=== PATIENT | male | born 1940 | race Caucasian/White ===

== ENCOUNTER 2018-09-16 10:41 | Inpatient (IN) | payer OTHER ==
[~2018-09-16] VITALS: Ht 180.3 cm; Wt 84.0 kg
[2018-09-16 12:01] LABS: BASOPHILS # (AUTO) 0.1 X10'3 (0-0.2); BASOPHILS % (AUTO) 0.6 % (0-1); EOSINOPHILS % (AUTO) 0.4 % (0-6); HEMATOCRIT 44.6 % (42.0-52.0); HEMOGLOBIN 14.8 g/dl (14.0-17.9); LYMPHOCYTES # (AUTO) 0.6 X10'3 (1.1-4.8); LYMPHOCYTES % (AUTO) 4.7 % (21-51); MEAN CORPUSCULAR HEMOGLOBIN 32.1 PG (27.0-31.0); MEAN CORPUSCULAR HGB CONC 33.3 % (33.0-36.5); MEAN CORPUSCULAR VOLUME 96.6 FL (78-98); MEAN PLATELET VOLUME 9.4 FL (7.4-10.4); MONOCYTES # (AUTO) 0.5 X10'3 (0-0.9); MONOCYTES % (AUTO) 3.7 % (2-12); NEUTROPHILS # (AUTO) 11.2 X10'3 (1.8-7.7); NEUTROPHILS % (AUTO) 90.6 % (42-75); PLATELET COUNT 268 X10'3 (140-440); RED BLOOD COUNT 4.62 X10'6 (4.70-6.10); RED CELL DISTRIBUTION WIDTH 13.1 % (11.5-14.5); WHITE BLOOD COUNT 12.4 X10'3 (4.5-11.0)
[2018-09-16 12:24] LABS: ALANINE AMINOTRANSFERASE 22 U/L (12-78); ALBUMIN 3.6 G/DL (3.4-5.0); ALBUMIN/GLOBULIN RATIO 0.9 (1.1-1.5); ALKALINE PHOSPHATASE 130 IU/L (46-116); ANION GAP 16 (8-16); ASPARTATE AMINO TRANSFERASE 18 U/L (10-37); BLOOD UREA NITROGEN 32 MG/DL (7-18); BUN/CREATININE RATIO 14.7 (5.4-32.0); CALCIUM 9.4 MG/DL (8.5-10.1); CHLORIDE 96 MMOL/L (99-107); CREATININE 2.17 MG/DL (0.60-1.10); ETHANOL < 0.010 GM/DL (0.0-0.010); POTASSIUM 4.2 MMOL/L (3.5-5.1); SODIUM 136 MMOL/L (135-145); TOTAL CARBON DIOXIDE 24.3 MMOL/L (24-32); TOTAL PROTEIN 7.4 G/DL (6.4-8.2); eGFR 30 ML/MIN
[2018-09-16 12:27] LABS: GLUCOSE 586 MG/DL (70-104)
[2018-09-16] MEDS ORDERED: normal saline 1000ML IV soln IVB ONE (12:30)
[2018-09-16 13:05] LABS: CLARITY,URINE CLEAR (Clear); COLOR,URINE YELLOW (Yellow); GLUCOSE, URINE >=1000 mg/dl (Neg); KETONES,URINE 15 mg/dl (Neg); LEUKOCYTE ESTERASE ,URINE NEGATIVE (Neg); NITRITES, URINE NEGATIVE (Neg); OCCULT BLOOD,URINE NEGATIVE (Neg); PH,URINE 5.5 (4.8-8.0); PROTEIN,URINE 100 mg/dl (Neg); UROBILINOGEN,URINE 0.2 E.U/dL (0.2-1.0)
[2018-09-16 13:12] LABS: UA COLLECTION TYPE URINAL
[2018-09-16 13:13] LABS: BACTERIA,URINE NONE SEEN /HPF (Neg); RBC,URINE NONE SEEN /HPF (0-2); WBC,URINE 0-4 /HPF (0-4)
[2018-09-16 13:14] LABS: CELLULAR CAST 0-4 /LPF (NEGATIVE); SQUAMOUS EPITHELIAL CELL,UR FEW /LPF (FEW)
[2018-09-16 13:15] LABS: URINE AMPHETAMINE SCREEN NEGATIVE (Neg); URINE BARBITUATE SCREEN NEGATIVE (Neg); URINE BENZODIAZEPINES SCREEN NEGATIVE (Neg); URINE CANNABINOID SCREEN POSITIVE (Neg); URINE COCAINE SCREEN NEGATIVE (Neg); URINE METHADONE SCREEN NEGATIVE (Neg); URINE OPIATE SCREEN POSITIVE (Neg); URINE PHENCYCLIDINE SCREEN NEGATIVE (Neg)
[2018-09-16] MEDS ORDERED: insulin regular, human 10 units/0.1 ml syringe SQ ONE (13:40)
[2018-09-16 13:53] LABS: TROPONIN I < 0.04 NG/ML (0.0-0.05)
--- NOTE | 2018-09-16 14:17 | NUR ---
GLUCOSE 483
[2018-09-16] MEDS ORDERED: magnesium Cl slow-release 64mg tablet PO PRN (14:20)
[2018-09-16] MEDS ORDERED: MESSAGE TO PHARMACY PO ONE (14:20)
[2018-09-16] MEDS ORDERED: potassium Cl 40MEQ/NS 500ml 500 ML IV PRN ×2 (14:20)
[2018-09-16] MEDS ORDERED: magnesium 4gm in 100ml NS 100 ML IV PRN (14:20)
[2018-09-16] MEDS ORDERED: potassium Cl 20 mEq SR tablet PO PRN (14:20)
[2018-09-16] MEDS ORDERED: metoclopramide 5 mg/ml inj IV PRN (14:20)
[2018-09-16] MEDS ORDERED: glucagon, human recombinant 1mg kit SUBCUT PRN (14:20)
[2018-09-16] MEDS ORDERED: dextrose 50%-water 50ml dispensing syringe IV PRN ×2 (14:20)
[2018-09-16] MEDS ORDERED: ondansetron/PF 4mg/2ml inj IV PRN (14:20)
[2018-09-16] MEDS ORDERED: dextrose ORAL solution 15 GM/59 ML bottle PO PRN ×2 (14:20)
[2018-09-16] MEDS ORDERED: acetaminophen 325mg tablet PO PRN (14:20)
[2018-09-16] MEDS: normal saline 1000ml 1,000 ML IV SCH (14:33)
[2018-09-16 15:32] LABS: HEMOGLOBIN A1C 10.1 % (4.5-6.2)
[2018-09-16] MEDS ORDERED: IBUP-1984 PO (16:15)
[2018-09-16] MEDS ORDERED: OMEP40CA37 PO (16:19)
[2018-09-16] MEDS ORDERED: CYAN-19 PO (16:20)
[2018-09-16] MEDS ORDERED: ASPI81TA52 PO (16:20)
[2018-09-16] MEDS ORDERED: MECL-111 PO (16:21)
[2018-09-16] MEDS ORDERED: DOCU100C41 PO (16:23)
[2018-09-16] MEDS ORDERED: DULO-31 PO (16:23)
[2018-09-16] MEDS ORDERED: METH500T6 PO (16:25)
[2018-09-16] MEDS ORDERED: TERA2CAP4 PO (16:26)
[2018-09-16] MEDS ORDERED: GABA-534 PO (16:26)
[2018-09-16] MEDS ORDERED: INSU100V37 SQ (16:28)
--- NOTE | 2018-09-16 19:38 | NUR ---
GLUCOSE 254
--- NOTE | 2018-09-16 21:01 | NUR ---
elias called to get update on pt, let her know glucose 254
[2018-09-16] MEDS: insulin glargine (Lantus) pen - multi-dose SQ SCH (22:30)
[2018-09-17] VITALS (7 sets, daily range): BP systolic 118–154; BP diastolic 66–96
--- NOTE | 2018-09-17 00:05 | NUR ---
PATIENT ADMITTED TO ROOM 3014A FROM ER FOR CONFUSION, [facility] AND UNCONTROLLED DIABETES. PLACED COMFORTABLE IN BED. VITAL SIGNS TAKEN AND RECORDED.
[2018-09-17] MEDS: normal saline 1000ml 1,000 ML IV SCH ×3 (00:30→20:20)
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
[2018-09-17 06:06] LABS: ANION GAP 12 (8-16); BLOOD UREA NITROGEN 27 MG/DL (7-18); BUN/CREATININE RATIO 17.5 (5.4-32.0); CALCIUM 8.1 MG/DL (8.5-10.1); CHLORIDE 105 MMOL/L (99-107); CREATININE 1.54 MG/DL (0.60-1.10); GLUCOSE 260 MG/DL (70-104); MAGNESIUM 1.6 MG/DL (1.5-2.4); POTASSIUM 3.4 MMOL/L (3.5-5.1); SODIUM 142 MMOL/L (135-145); TOTAL CARBON DIOXIDE 24.6 MMOL/L (24-32); eGFR 44 ML/MIN
[2018-09-17 06:14] LABS: BASOPHILS # (AUTO) 0.1 X10'3 (0-0.2); BASOPHILS % (AUTO) 0.6 % (0-1); EOSINOPHILS # (AUTO) 0.2 X10'3 (0-0.9); EOSINOPHILS % (AUTO) 2.5 % (0-6); HEMATOCRIT 38.6 % (42.0-52.0); HEMOGLOBIN 13.1 g/dl (14.0-17.9); LYMPHOCYTES # (AUTO) 1.4 X10'3 (1.1-4.8); LYMPHOCYTES % (AUTO) 13.7 % (21-51); MEAN CORPUSCULAR HEMOGLOBIN 32.9 PG (27.0-31.0); MEAN CORPUSCULAR HGB CONC 34.1 % (33.0-36.5); MEAN CORPUSCULAR VOLUME 96.4 FL (78-98); MEAN PLATELET VOLUME 9.6 FL (7.4-10.4); MONOCYTES # (AUTO) 0.6 X10'3 (0-0.9); NEUTROPHILS # (AUTO) 7.7 X10'3 (1.8-7.7); NEUTROPHILS % (AUTO) 77.2 % (42-75); PLATELET COUNT 256 X10'3 (140-440); RED CELL DISTRIBUTION WIDTH 13.1 % (11.5-14.5)
--- NOTE | 2018-09-17 06:30 | NUR ---
Problems reprioritized. Patient report given, questions answered & plan of care reviewed with JACQUE NORTON.
--- NOTE | 2018-09-17 06:45 | NUR ---
Patient in room PCU 3014. I have received report from Zoe NORTON and had the opportunity to ask questions and assume patient care.
[2018-09-17] MEDS: potassium Cl 20 mEq SR tablet PO PRN ×3 (07:27→17:38)
[2018-09-17] MEDS: K and/or MAG REPLACEMENT MC SCH (08:00)
[2018-09-17] MEDS: insulin Lispro (HumaLOG) vial - multi-dose SQ SCH ×3 (09:13→18:50)
[2018-09-17] MEDS ORDERED: aspirin 81mg tablet.DR PO ONE (11:25)
--- NOTE | 2018-09-17 14:51 | NUR ---
DM Consult: Pt admit w/ metabolic encephalopathy secondary to DKA hx T2DM A1C 10.1. MRI pending since pt having visual hallucinations. AOx1. Not appropriate for DM ed at this time. GLU down to 143 from 586 on admit. PO 0-25% heart healthy/carb controlled meals. Receiving electrolyte replacment per protocol and on hyperglycemic protocol. Will monitor for additional protein needs and DM ed once more alert prior to d/c. Rec: 1. continue heart healthy/carb controlled diet 2. monitor for ONS needs 3. DM ed once appropriate prior to d/c 4. wt per rx Addendum: 09/17/18 at [address] Amended: Links added.
--- NOTE | 2018-09-17 18:30 | NUR ---
Patient in room U 3014. I have received report from CIERRA Redman and had the opportunity to ask questions and assume patient care. Addendum: 09/17/18 at 1920 by Vera Woodruff RN Amended: Links added.
--- NOTE | 2018-09-17 18:34 | NUR ---
Problems reprioritized. Patient report given, questions answered & plan of care reviewed with Yadira NORTON.
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
[2018-09-17] MEDS: insulin glargine (Lantus) pen - multi-dose SQ SCH (22:19)
--- NOTE | 2018-09-17 22:30 | NUR ---
Has strong "barking cough, when laying flat. not coughing up any sputum Addendum: 09/17/18 at 0217 by Vera Woodruff RN Amended: Links added.
[2018-09-18] VITALS (8 sets, daily range): BP systolic 127–167; BP diastolic 73–90
[2018-09-18] MEDS: normal saline 1000ml 1,000 ML IV SCH ×2 (02:00→16:38)
--- NOTE | 2018-09-18 06:16 | NUR ---
Problems reprioritized. Patient report given, questions answered & plan of care reviewed with CIERRA CARRILLO. Addendum: 09/18/18 at 0616 by Vera Woodruff RN Amended: Links added.
--- NOTE | 2018-09-18 06:30 | NUR ---
Patient in room PCU 3014. I have received report from CIERRA May and had the opportunity to ask questions and assume patient care.
[2018-09-18] MEDS: aspirin 81mg tablet.DR PO SCH (08:00)
[2018-09-18] MEDS: K and/or MAG REPLACEMENT MC SCH (08:00)
[2018-09-18 08:07] LABS: RPR Non Reactive (Non Reactive)
--- NOTE | 2018-09-18 08:30 | NUR ---
Patient refused Ecotrin, 81 mg this morning. Patient teaching given. patient states he " doesnt need it" .
[2018-09-18 09:15] LABS: BASOPHILS % (AUTO) 0.2 % (0-1); EOSINOPHILS # (AUTO) 0.2 X10'3 (0-0.9); EOSINOPHILS % (AUTO) 3.2 % (0-6); HEMATOCRIT 35.2 % (42.0-52.0); HEMOGLOBIN 11.7 g/dl (14.0-17.9); LYMPHOCYTES % (AUTO) 15.4 % (21-51); MEAN CORPUSCULAR HEMOGLOBIN 32.1 PG (27.0-31.0); MEAN CORPUSCULAR HGB CONC 33.3 % (33.0-36.5); MEAN CORPUSCULAR VOLUME 96.4 FL (78-98); MEAN PLATELET VOLUME 8.8 FL (7.4-10.4); MONOCYTES # (AUTO) 0.4 X10'3 (0-0.9); MONOCYTES % (AUTO) 6.1 % (2-12); NEUTROPHILS # (AUTO) 5.1 X10'3 (1.8-7.7); NEUTROPHILS % (AUTO) 75.1 % (42-75); PLATELET COUNT 242 X10'3 (140-440); RED BLOOD COUNT 3.65 X10'6 (4.70-6.10); WHITE BLOOD COUNT 6.8 X10'3 (4.5-11.0)
[2018-09-18 09:26] LABS: ALBUMIN 2.7 G/DL (3.4-5.0); ANION GAP 12 (8-16); BLOOD UREA NITROGEN 20 MG/DL (7-18); BUN/CREATININE RATIO 16.5 (5.4-32.0); CHLORIDE 107 MMOL/L (99-107); CREATININE 1.21 MG/DL (0.60-1.10); GLUCOSE 146 MG/DL (70-104); MAGNESIUM 1.6 MG/DL (1.5-2.4); SODIUM 143 MMOL/L (135-145); TOTAL CARBON DIOXIDE 24.2 MMOL/L (24-32); eGFR 58 ML/MIN
[2018-09-18 09:30] LABS: POTASSIUM 3.9 MMOL/L (3.5-5.1)
[2018-09-18] MEDS: insulin Lispro (HumaLOG) vial - multi-dose SQ SCH ×2 (13:27→19:15)
[2018-09-18] MEDS ORDERED: non-formulary drug (Meclizine HCl 1 TAB) PO SCH (14:00)
[2018-09-18] MEDS ORDERED: meclizine 12.5mg tablet PO PRN (14:10)
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
--- NOTE | 2018-09-18 18:00 | NUR ---
Problems reprioritized. Patient report given, questions answered & plan of care reviewed with CIERRA Denton.
[2018-09-18] MEDS: gabapentin 400mg capsule PO SCH (19:18)
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
[2018-09-18] MEDS ORDERED: non-formulary drug (Terazosin HCl 1 CAP) PO SCH (21:00)
[2018-09-18] MEDS: Terazosin 1mg capsule PO SCH (22:30)
[2018-09-18] MEDS: insulin glargine (Lantus) pen - multi-dose SQ SCH (22:36)
[2018-09-19] MEDS: normal saline 1000ml 1,000 ML IV SCH ×3 (02:20→22:20)
[2018-09-19 05:16] LABS: BASOPHILS % (AUTO) 0.6 % (0-1); EOSINOPHILS # (AUTO) 0.3 X10'3 (0-0.9); EOSINOPHILS % (AUTO) 3.6 % (0-6); HEMATOCRIT 36.8 % (42.0-52.0); HEMOGLOBIN 12.6 g/dl (14.0-17.9); LYMPHOCYTES # (AUTO) 1.3 X10'3 (1.1-4.8); LYMPHOCYTES % (AUTO) 18.6 % (21-51); MEAN CORPUSCULAR HEMOGLOBIN 32.6 PG (27.0-31.0); MEAN CORPUSCULAR HGB CONC 34.2 % (33.0-36.5); MEAN CORPUSCULAR VOLUME 95.5 FL (78-98); MEAN PLATELET VOLUME 8.9 FL (7.4-10.4); MONOCYTES # (AUTO) 0.4 X10'3 (0-0.9); MONOCYTES % (AUTO) 5.6 % (2-12); NEUTROPHILS # (AUTO) 5.2 X10'3 (1.8-7.7); NEUTROPHILS % (AUTO) 71.6 % (42-75); PLATELET COUNT 254 X10'3 (140-440); RED BLOOD COUNT 3.85 X10'6 (4.70-6.10); RED CELL DISTRIBUTION WIDTH 13.1 % (11.5-14.5); WHITE BLOOD COUNT 7.2 X10'3 (4.5-11.0)
[2018-09-19 06:00] VITALS: BP_SYST 132; BP_SYST 133; BP_DIAS 76; BP_DIAS 77
--- NOTE | 2018-09-19 06:19 | NUR ---
Problems reprioritized. Patient report given, questions answered & plan of care reviewed with CIERRA Oshea.
--- NOTE | 2018-09-19 06:20 | NUR ---
Patient in room PCU 3014. I have received report from CIERRA Denton and had the opportunity to ask questions and assume patient care. Patient awake, pleasant, respirations even and unlabored on room air.
[2018-09-19 06:34] LABS: ALBUMIN 2.9 G/DL (3.4-5.0); ANION GAP 10 (8-16); BLOOD UREA NITROGEN 14 MG/DL (7-18); BUN/CREATININE RATIO 12.1 (5.4-32.0); CALCIUM 7.9 MG/DL (8.5-10.1); CHLORIDE 107 MMOL/L (99-107); CREATININE 1.16 MG/DL (0.60-1.10); GLUCOSE 90 MG/DL (70-104); MAGNESIUM 1.5 MG/DL (1.5-2.4); POTASSIUM 3.4 MMOL/L (3.5-5.1); SODIUM 141 MMOL/L (135-145); TOTAL CARBON DIOXIDE 24.4 MMOL/L (24-32); eGFR 61 ML/MIN
[2018-09-19] MEDS: K and/or MAG REPLACEMENT MC SCH (08:00)
[2018-09-19] MEDS: duloxetine 30mg CAPSULE.DR PO SCH (08:00)
[2018-09-19] MEDS: aspirin 81mg tablet.DR PO SCH ×2 (08:00→08:15)
[2018-09-19] MEDS ORDERED: non-formulary drug (Omeprazole (Prilosec) 0.5 CAP) PO SCH (08:00)
[2018-09-19] MEDS: gabapentin 400mg capsule PO SCH ×2 (08:00→20:00)
[2018-09-19] MEDS: cyanocobalamin 500mcg tablet PO SCH (08:11)
[2018-09-19] MEDS: pantoprazole 40mg Tablet.DR PO SCH (08:15)
[2018-09-19] MEDS: docusate sod 100mg capsule PO SCH (08:15)
--- NOTE | 2018-09-19 08:15 | NUR ---
Patient blood sugar this am 88, patient did not eat breakfast. will not give humalog and will continue to monitor 1200 blood sugar.
--- NOTE | 2018-09-19 09:18 | NUR ---
SS made attempt to engage pt in completing a psychosocial assessment, pt was alert but not oriented therefore, not able to participate in the psychosocial interview. SS contacted pt's asked her to come in tomorrow @ 11:00 to meet w/SS.
[2018-09-19] MEDS: potassium Cl 20 mEq SR tablet PO PRN (09:46)
[2018-09-19 11:00] VITALS: BP 145/83
--- NOTE | 2018-09-19 12:48 | NUR ---
Tele Psych consult called and set up for this patient. Explained the process to patient. Awaiting call for the consult.
[2018-09-19] MEDS: insulin Lispro (HumaLOG) vial - multi-dose SQ SCH ×2 (13:07→19:37)
--- NOTE | 2018-09-19 14:00 | NUR ---
Patient refusing second potassium replacement this afternoon. Educated patient on importance of replacing potassium, continues to refuse.
[2018-09-19 15:00] VITALS: BP 132/77
--- NOTE | 2018-09-19 18:45 | NUR ---
Problems reprioritized. Patient report given, questions answered & plan of care reviewed with CIERRA Leggett.
[2018-09-19 19:00] VITALS: BP 147/78
[2018-09-19] MEDS: Terazosin 1mg capsule PO SCH (21:00)
[2018-09-19] MEDS: insulin glargine (Lantus) pen - multi-dose SQ SCH (21:04)
[2018-09-19 23:00] VITALS: BP 139/76
[2018-09-20 03:00] VITALS: BP 148/61
[2018-09-20 06:00] VITALS: BP 148/68
[2018-09-20 06:10] LABS: ALBUMIN 2.8 G/DL (3.4-5.0); ANION GAP 12 (8-16); BLOOD UREA NITROGEN 9 MG/DL (7-18); BUN/CREATININE RATIO 8.3 (5.4-32.0); CHLORIDE 107 MMOL/L (99-107); CREATININE 1.08 MG/DL (0.60-1.10); GLUCOSE 72 MG/DL (70-104); MAGNESIUM 1.4 MG/DL (1.5-2.4); POTASSIUM 3.6 MMOL/L (3.5-5.1); SODIUM 140 MMOL/L (135-145); TOTAL CARBON DIOXIDE 20.8 MMOL/L (24-32); eGFR 66 ML/MIN
[2018-09-20 06:23] LABS: BASOPHILS % (AUTO) 0.3 % (0-1); EOSINOPHILS # (AUTO) 0.2 X10'3 (0-0.9); EOSINOPHILS % (AUTO) 2.4 % (0-6); HEMATOCRIT 36.9 % (42.0-52.0); HEMOGLOBIN 12.4 g/dl (14.0-17.9); LYMPHOCYTES # (AUTO) 1.1 X10'3 (1.1-4.8); MEAN CORPUSCULAR HEMOGLOBIN 32.3 PG (27.0-31.0); MEAN CORPUSCULAR HGB CONC 33.7 % (33.0-36.5); MEAN CORPUSCULAR VOLUME 95.9 FL (78-98); MEAN PLATELET VOLUME 9.3 FL (7.4-10.4); MONOCYTES # (AUTO) 0.4 X10'3 (0-0.9); MONOCYTES % (AUTO) 4.9 % (2-12); NEUTROPHILS # (AUTO) 5.8 X10'3 (1.8-7.7); NEUTROPHILS % (AUTO) 77.4 % (42-75); PLATELET COUNT 243 X10'3 (140-440); RED BLOOD COUNT 3.84 X10'6 (4.70-6.10); RED CELL DISTRIBUTION WIDTH 13.1 % (11.5-14.5); WHITE BLOOD COUNT 7.5 X10'3 (4.5-11.0)
--- NOTE | 2018-09-20 07:00 | NUR ---
Patient in room PCU 3014. I have received report from CIERRA Olivo and had the opportunity to ask questions and assume patient care.
--- NOTE | 2018-09-20 07:19 | NUR ---
Pts blood sugar 0700 68 Addendum: 09/20/18 at 0720 by Lolis Brito RN Pts blood sugar 0700 68, pt refused glucose shot. pt prefers a juice. pt shows no signs of hypoglycemia, pt is alert and oriented.
--- NOTE | 2018-09-20 07:51 | NUR ---
BG 88 , no complaints, needs addressed. nothing needed at this time
--- NOTE | 2018-09-20 07:58 | NUR ---
pt refusing all am meds. explained the importance of meds, pt continues to refuse meds.
[2018-09-20] MEDS: pantoprazole 40mg Tablet.DR PO SCH (07:59)
[2018-09-20] MEDS: gabapentin 400mg capsule PO SCH ×2 (08:00→20:00)
[2018-09-20] MEDS: docusate sod 100mg capsule PO SCH (08:00)
[2018-09-20] MEDS: aspirin 81mg tablet.DR PO SCH ×2 (08:00→08:05)
[2018-09-20] MEDS: cyanocobalamin 500mcg tablet PO SCH (08:00)
[2018-09-20] MEDS: duloxetine 30mg CAPSULE.DR PO SCH (08:00)
[2018-09-20] MEDS: K and/or MAG REPLACEMENT MC SCH (08:00)
--- NOTE | 2018-09-20 08:07 | NUR ---
pt agreed to take asa and protinix, refusing all other am meds
[2018-09-20] MEDS: normal saline 1000ml 1,000 ML IV SCH ×2 (08:20→18:20)
[2018-09-20 11:00] VITALS: BP 135/75
[2018-09-20 15:00] VITALS: BP 130/80
--- NOTE | 2018-09-20 16:36 | NUR ---
PO intake improving, now 50-74% of carb controlled meals. Still not appropriate for DM education. Pending placement. Will continue to follow. Rec: 1. continue heart healthy/carb controlled diet 2. monitor for ONS needs 3. wt per rx Addendum: 09/20/18 at [address] Amended: Links added.
[2018-09-20 18:00] VITALS: BP 134/80
--- NOTE | 2018-09-20 18:30 | NUR ---
Patient in room PCU 3014. I have received report from WAQAS NORTON and had the opportunity to ask questions and assume patient care.
--- NOTE | 2018-09-20 18:30 | NUR ---
Problems reprioritized. Patient report given, questions answered & plan of care reviewed with CEIRRA PINEDA.
[2018-09-20] MEDS: Terazosin 1mg capsule PO SCH (20:20)
--- NOTE | 2018-09-20 20:20 | NUR ---
pt refused nighttime PO meds despite education of what they treat, he says he does not take pills at home and they get stuck in his throat
[2018-09-20] MEDS: insulin glargine (Lantus) pen - multi-dose SQ SCH (21:00)
--- NOTE | 2018-09-20 21:13 | NUR ---
pt had low glucose this AM and was on level 2 so he was not covered with insulin today, do not feel comfortable giving lantus, will nonadmin and reevaluate blood sugar tx tomorrow
[2018-09-20 22:00] VITALS: BP 127/81
[2018-09-21 02:00] VITALS: BP 140/71
[2018-09-21] MEDS: normal saline 1000ml 1,000 ML IV SCH ×3 (04:20→23:44)
[2018-09-21 05:43] LABS: BASOPHILS # (AUTO) 0.1 X10'3 (0-0.2); BASOPHILS % (AUTO) 0.9 % (0-1); EOSINOPHILS # (AUTO) 0.4 X10'3 (0-0.9); EOSINOPHILS % (AUTO) 6.2 % (0-6); HEMATOCRIT 33.7 % (42.0-52.0); HEMOGLOBIN 11.3 g/dl (14.0-17.9); LYMPHOCYTES # (AUTO) 1.1 X10'3 (1.1-4.8); LYMPHOCYTES % (AUTO) 15.3 % (21-51); MEAN CORPUSCULAR HEMOGLOBIN 32.3 PG (27.0-31.0); MEAN CORPUSCULAR HGB CONC 33.4 % (33.0-36.5); MEAN CORPUSCULAR VOLUME 96.8 FL (78-98); MEAN PLATELET VOLUME 8.4 FL (7.4-10.4); MONOCYTES # (AUTO) 0.5 X10'3 (0-0.9); MONOCYTES % (AUTO) 6.9 % (2-12); NEUTROPHILS % (AUTO) 70.7 % (42-75); PLATELET COUNT 249 X10'3 (140-440); RED BLOOD COUNT 3.48 X10'6 (4.70-6.10); RED CELL DISTRIBUTION WIDTH 13.1 % (11.5-14.5); WHITE BLOOD COUNT 7.1 X10'3 (4.5-11.0)
[2018-09-21 05:56] LABS: ALBUMIN 2.6 G/DL (3.4-5.0); ANION GAP 9 (8-16); BLOOD UREA NITROGEN 7 MG/DL (7-18); CALCIUM 7.7 MG/DL (8.5-10.1); CHLORIDE 108 MMOL/L (99-107); CREATININE 1.16 MG/DL (0.60-1.10); GLUCOSE 84 MG/DL (70-104); MAGNESIUM 1.3 MG/DL (1.5-2.4); POTASSIUM 3.5 MMOL/L (3.5-5.1); SODIUM 142 MMOL/L (135-145); TOTAL CARBON DIOXIDE 25.5 MMOL/L (24-32); eGFR 61 ML/MIN
--- NOTE | 2018-09-21 06:33 | NUR ---
Problems reprioritized. Patient report given, questions answered & plan of care reviewed with JASON NORTON.
[2018-09-21] MEDS: cyanocobalamin 500mcg tablet PO SCH (08:00)
[2018-09-21] MEDS: docusate sod 100mg capsule PO SCH (08:00)
[2018-09-21] MEDS: K and/or MAG REPLACEMENT MC SCH (08:00)
[2018-09-21] MEDS: duloxetine 30mg CAPSULE.DR PO SCH (08:00)
[2018-09-21] MEDS: aspirin 81mg tablet.DR PO SCH ×2 (08:00→09:19)
[2018-09-21] MEDS: gabapentin 400mg capsule PO SCH ×2 (08:00→20:00)
[2018-09-21] MEDS: pantoprazole 40mg Tablet.DR PO SCH (09:19)
[2018-09-21 10:38] VITALS: BP 108/58
[2018-09-21 19:00] VITALS: BP 147/100
[2018-09-21] MEDS: Terazosin 1mg capsule PO SCH (20:42)
[2018-09-21] MEDS: insulin glargine (Lantus) pen - multi-dose SQ SCH (21:00)
[2018-09-21 23:00] VITALS: BP 134/87
[2018-09-22 03:00] VITALS: BP 112/67
--- NOTE | 2018-09-22 06:36 | NUR ---
Patient in room PCU 3014. I have received report from CIERRA Royal and had the opportunity to ask questions and assume patient care.
--- NOTE | 2018-09-22 06:58 | NUR ---
Refused 0600 vitals.
[2018-09-22] MEDS: pantoprazole 40mg Tablet.DR PO SCH (07:30)
[2018-09-22] MEDS: docusate sod 100mg capsule PO SCH (07:52)
[2018-09-22] MEDS: aspirin 81mg tablet.DR PO SCH ×2 (07:52)
[2018-09-22] MEDS: gabapentin 400mg capsule PO SCH ×2 (07:52→20:00)
[2018-09-22] MEDS: duloxetine 30mg CAPSULE.DR PO SCH (07:52)
[2018-09-22] MEDS: cyanocobalamin 500mcg tablet PO SCH (07:53)
[2018-09-22] MEDS: K and/or MAG REPLACEMENT MC SCH (07:56)
[2018-09-22] MEDS: normal saline 1000ml 1,000 ML IV SCH ×2 (10:28→20:20)
[2018-09-22 11:00] VITALS: BP 135/78
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
--- NOTE | 2018-09-22 11:34 | NUR ---
Spouse was provided w/info to the following resources: [facility] [place]- [facility]- [facility] contact for social workers: Haydee Monique & Poonam Long
--- NOTE | 2018-09-22 12:08 | NUR ---
Called trying to get patient placed she is talking to a social worker health services as of now.
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
[2018-09-22 15:00] VITALS: BP 140/98
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
--- NOTE | 2018-09-22 18:01 | NUR ---
Discharged. Stable per IV and Tele DC'd. Meds faxed to [facility] per family preference. Edcuated on meds and follow-up. DM survival skills given educated on syncope. Addendum: 09/22/18 at 1804 by Davis Andrade RN incorrect patient
--- NOTE | 2018-09-22 18:41 | NUR ---
Problems reprioritized. Patient report given, questions answered & plan of care reviewed with CIERRA Paniagua.
[2018-09-22 19:00] VITALS: BP 148/81
--- NOTE | 2018-09-22 19:28 | NUR ---
Mag level of 1.3 low, Paged Dr. Celso MD for replacement protocol orders. Pending response. PAGER ID: [phone] MESSAGE: [id number] Jesus Griffith. pt has Mag level of 1.3 and no order for magnesium replacement. Would you like me to replace per [place] protocol? CIERRA Paniagua Tele #[phone]
[2018-09-22] MEDS ORDERED: magnesium Cl slow-release 64mg tablet PO PRN (19:35)
[2018-09-22] MEDS ORDERED: magnesium 4gm in 100ml NS 100 ML IV PRN (19:35)
[2018-09-22] MEDS: insulin Lispro (HumaLOG) vial - multi-dose SQ SCH (19:46)
[2018-09-22] MEDS: Terazosin 1mg capsule PO SCH (21:00)
[2018-09-22] MEDS: insulin glargine (Lantus) pen - multi-dose SQ SCH (21:00)
[2018-09-22 23:00] VITALS: BP 139/78
[2018-09-23 03:00] VITALS: BP 118/67
--- NOTE | 2018-09-23 04:39 | NUR ---
Pt refused PO Mag replacement. Initiated IV mag replacement per Dr. Celso MD orders. Will cont to monitor.
[2018-09-23 06:00] VITALS: BP 117/54
--- NOTE | 2018-09-23 06:06 | NUR ---
Patient in room PCU 3014. I have received report from CIERRA Paniagua and had the opportunity to ask questions and assume patient care.
[2018-09-23] MEDS: normal saline 1000ml 1,000 ML IV SCH ×2 (06:20→15:54)
--- NOTE | 2018-09-23 06:26 | NUR ---
Problems reprioritized. Patient report given, questions answered & plan of care reviewed with CIERRA Cannon.
[2018-09-23] MEDS: K and/or MAG REPLACEMENT MC SCH (07:12)
[2018-09-23] MEDS: cyanocobalamin 500mcg tablet PO SCH ×3 (07:25→11:05)
[2018-09-23] MEDS: pantoprazole 40mg Tablet.DR PO SCH ×3 (07:25→11:05)
[2018-09-23] MEDS: gabapentin 400mg capsule PO SCH ×4 (07:25→20:00)
[2018-09-23] MEDS: duloxetine 30mg CAPSULE.DR PO SCH ×2 (07:25→11:05)
[2018-09-23] MEDS: aspirin 81mg tablet.DR PO SCH ×2 (07:25→11:07)
[2018-09-23] MEDS: docusate sod 100mg capsule PO SCH (07:25)
[2018-09-23] MEDS: insulin Lispro (HumaLOG) vial - multi-dose SQ SCH ×3 (08:29→19:20)
[2018-09-23 11:00] VITALS: BP 131/75
--- NOTE | 2018-09-23 11:19 | NUR ---
PAGER ID: [phone] MESSAGE: [id number] Jesus Griffith: Do you want me to put in an order for the tele psych to assess the dementia as recommended in your note? CIERRA Cannon Ext [phone]
[2018-09-23 15:00] VITALS: BP 144/77
--- NOTE | 2018-09-23 17:11 | NUR ---
PAGER ID: [phone] MESSAGE: [id number] Osmel Mitchell is complaining of 8/10 back pain. Can he get prescribed something for pain control? CIERRA Cannon Ext [phone]
[2018-09-23] MEDS: HYDROcodone/acetaminophen 5mg/325mg tablet PO PRN (17:51)
--- NOTE | 2018-09-23 18:30 | NUR ---
Problems reprioritized. Patient report given, questions answered & plan of care reviewed with Laurie RN.
[2018-09-23 19:00] VITALS: BP 111/63
[2018-09-23] MEDS: Terazosin 1mg capsule PO SCH (21:00)
[2018-09-23] MEDS: insulin glargine (Lantus) pen - multi-dose SQ SCH (21:45)
[2018-09-23 23:00] VITALS: BP 150/83
[2018-09-24] MEDS: normal saline 1000ml 1,000 ML IV SCH ×3 (01:27→22:20)
[2018-09-24 03:00] VITALS: BP 141/77
--- NOTE | 2018-09-24 06:30 | NUR ---
pt awake; no c/o's of pain or discomfort; report given to CIERRA Vaz
--- NOTE | 2018-09-24 06:40 | NUR ---
Patient in room PCU 3018. I have received report from CIERRA Sullivan and had the opportunity to ask questions and assume patient care.
[2018-09-24 07:00] VITALS: BP 130/76
[2018-09-24] MEDS: pantoprazole 40mg Tablet.DR PO SCH (07:30)
[2018-09-24] MEDS: duloxetine 30mg CAPSULE.DR PO SCH (07:44)
[2018-09-24] MEDS: cyanocobalamin 500mcg tablet PO SCH (07:47)
[2018-09-24] MEDS: docusate sod 100mg capsule PO SCH (07:48)
[2018-09-24] MEDS: K and/or MAG REPLACEMENT MC SCH (07:48)
[2018-09-24] MEDS: aspirin 81mg tablet.DR PO SCH (07:48)
[2018-09-24] MEDS: gabapentin 400mg capsule PO SCH ×2 (07:48→20:00)
[2018-09-24] MEDS: HYDROcodone/acetaminophen 5mg/325mg tablet PO PRN ×2 (08:00→18:47)
--- NOTE | 2018-09-24 09:03 | NUR ---
Pt's morning blood glucose level was 111. Pt consumed 3g of carbs for breakfast. No insulin needed per nutritional correctional tool.
[2018-09-24 11:00] VITALS: BP 137/72
--- NOTE | 2018-09-24 12:05 | NUR ---
SS contacted [facility] SW-Haydee Monique [phone] to confirm spouse's info that [facility] is helping her find placement for pt. per consultation, pt has zero service connection in [place] therefore, [facility] will not be able to provide any services for him @ this time. Ms. Monique recommends that when pt is d/c from the hospital, spouse brings him into [facility] clinic to enroll in services @ which time they will coordinate transition of pt's services from [place] to [place].
[2018-09-24 12:37] LABS: ALANINE AMINOTRANSFERASE 21 U/L (12-78); ALBUMIN 2.9 G/DL (3.4-5.0); ALKALINE PHOSPHATASE 84 IU/L (46-116); ANION GAP 10 (8-16); ASPARTATE AMINO TRANSFERASE 21 U/L (10-37); BILIRUBIN,TOTAL 0.6 MG/DL (0.1-1.0); BLOOD UREA NITROGEN 5 MG/DL (7-18); CHLORIDE 106 MMOL/L (99-107); GLUCOSE 101 MG/DL (70-104); POTASSIUM 3.7 MMOL/L (3.5-5.1); SODIUM 141 MMOL/L (135-145); TOTAL CARBON DIOXIDE 24.7 MMOL/L (24-32); TOTAL PROTEIN 5.9 G/DL (6.4-8.2); eGFR 73 ML/MIN
--- NOTE | 2018-09-24 14:00 | NUR ---
Problems reprioritized. Patient report given, questions answered & plan of care reviewed with CIERRA Gaming.
--- NOTE | 2018-09-24 14:07 | NUR ---
SS received p/c from Poonam Long, [facility] [phone]; per consultation, OR will pay for 30-day placement @ [facility] pending a dcp. Contact for [facility], [place]- [phone]. Ms. Long informed SS that the Seal Skinner @ [facility] will sign the admission paperwork. SS contacted pt's spouse and engaged her in discharge planning activities, per discussion, spouse is agreeable to have pt rt home with her once he is cognitively & behaviorally stable on medications to treat sxs associated w/Dementia & PTSD. SS suggest to spouse that while pt is @ [facility], she ask the social welfare research worker there to assist him in applying for Medicare & MediCal benefits, spouse was agreeable to this. [facility] informed and will f/u w/[facility] to facilitate pt's transfer there. Plan: SS will meet with pt & his spouse later this afternoon to review dcp via transfer to [facility].
--- NOTE | 2018-09-24 15:00 | NUR ---
Pt transported to [facility]49B without difficulty.
[2018-09-24 15:20] VITALS: BP 141/85
--- NOTE | 2018-09-24 15:22 | NUR ---
Patient just got into his room. Patient alert, oriented x 4. Oriented patient to the unit with emphasis to use call light when needing to go to the restroom.
--- NOTE | 2018-09-24 17:26 | NUR ---
Patient's current peripheral IV on the left wrist was occluded. Attempted to insert a new peripheral IV catheter, no success - vein blew although positive blood return noted.
--- NOTE | 2018-09-24 18:30 | NUR ---
Problems reprioritized. Patient report given, questions answered & plan of care reviewed with Yumiko NORTON.
[2018-09-24 20:00] VITALS: BP 134/79
[2018-09-24] MEDS: Terazosin 1mg capsule PO SCH (21:00)
[2018-09-24] MEDS: insulin glargine (Lantus) pen - multi-dose SQ SCH (21:06)
--- NOTE | 2018-09-24 22:12 | NUR ---
Patient in room LARON 349. I have received report from CIERRA Vazquez and had the opportunity to ask questions and assume patient care. Addendum: 09/24/18 at 2219 by Yumiko Diehl RN Amended: Links added.
--- NOTE | 2018-09-24 22:32 | NUR ---
pt states that "I'm in [employer] and I just came back from [facility] flying [email or web address].
[2018-09-25 00:28] VITALS: BP 144/79
--- NOTE | 2018-09-25 06:13 | NUR ---
Problems reprioritized. Patient report given, questions answered & plan of care reviewed with CIERRA Vazquez. Addendum: 09/25/18 at 0613 by Yumiko Diehl RN Amended: Links added.
--- NOTE | 2018-09-25 06:36 | NUR ---
Patient in room LARON 349. I have received report from Yumiko NORTON and had the opportunity to ask questions and assume patient care.
[2018-09-25 07:00] VITALS: BP 137/68
[2018-09-25] MEDS: pantoprazole 40mg Tablet.DR PO SCH (07:30)
--- NOTE | 2018-09-25 07:51 | NUR ---
Blood sugar was 77 mg/dl this am, asymptomatic. Breakfast tray served. Instructed patient to ensure he eats because his blood sugar is already low - he verbalized understanding
[2018-09-25] MEDS: cyanocobalamin 500mcg tablet PO SCH (07:56)
[2018-09-25] MEDS: duloxetine 30mg CAPSULE.DR PO SCH (07:56)
[2018-09-25] MEDS: aspirin 81mg tablet.DR PO SCH (07:57)
[2018-09-25] MEDS: docusate sod 100mg capsule PO SCH (07:57)
[2018-09-25] MEDS: gabapentin 400mg capsule PO SCH ×2 (07:58→19:23)
[2018-09-25] MEDS: K and/or MAG REPLACEMENT MC SCH (08:00)
[2018-09-25] MEDS: normal saline 1000ml 1,000 ML IV SCH ×2 (08:20→18:20)
--- NOTE | 2018-09-25 09:21 | NUR ---
SS contacted [facility]/Admission Coordinator (Yanet) @ [facility] to f/u on pt's referral. Per discussion, they did not received referral packet. SS communicated w/CM, CM will re-fax.
[2018-09-25 11:00] VITALS: BP 143/79
[2018-09-25] MEDS: HYDROcodone/acetaminophen 5mg/325mg tablet PO PRN ×2 (11:05→19:21)
--- NOTE | 2018-09-25 14:50 | NUR ---
Reassessment: Documented PO intake fluctuates with average 75%. DM ed continues to not be appropriate. Pt awaiting placement. Will continue to follow. Rec: 1. continue heart healthy/carb controlled diet 2. monitor for ONS needs 3. wt per rx Addendum: 09/25/18 at [address] Amended: Links added.
[2018-09-25 18:00] VITALS: BP 141/81
--- NOTE | 2018-09-25 18:30 | NUR ---
Patient in room LARON 349. I have received report from Theodora NORTON and had the opportunity to ask questions and assume patient care.
--- NOTE | 2018-09-25 18:41 | NUR ---
Problems reprioritized. Patient report given, questions answered & plan of care reviewed with Jayne NORTON.
[2018-09-25] MEDS: insulin Lispro (HumaLOG) vial - multi-dose SQ SCH (19:20)
[2018-09-25] MEDS: Terazosin 1mg capsule PO SCH (21:00)
[2018-09-25] MEDS: insulin glargine (Lantus) pen - multi-dose SQ SCH (21:29)
[2018-09-26] VITALS: BP 130/77
[2018-09-26] MEDS: normal saline 1000ml 1,000 ML IV SCH (03:33)
[2018-09-26] MEDS: HYDROcodone/acetaminophen 5mg/325mg tablet PO PRN ×3 (04:12→19:16)
--- NOTE | 2018-09-26 06:28 | NUR ---
Problems reprioritized. Patient report given, questions answered & plan of care reviewed with Isabella NORTON.
[2018-09-26] MEDS: K and/or MAG REPLACEMENT MC SCH (06:49)
[2018-09-26] MEDS: aspirin 81mg tablet.DR PO SCH (07:04)
[2018-09-26] MEDS: duloxetine 30mg CAPSULE.DR PO SCH (07:04)
[2018-09-26] MEDS: cyanocobalamin 500mcg tablet PO SCH (07:05)
[2018-09-26] MEDS: docusate sod 100mg capsule PO SCH (07:05)
[2018-09-26] MEDS: gabapentin 400mg capsule PO SCH ×2 (07:06→19:20)
[2018-09-26] MEDS: pantoprazole 40mg Tablet.DR PO SCH (07:07)
[2018-09-26 08:00] VITALS: BP 143/78
[2018-09-26] MEDS: insulin Lispro (HumaLOG) vial - multi-dose SQ SCH ×3 (08:52→19:15)
[2018-09-26 11:00] VITALS: BP 154/92
[2018-09-26] MEDS: magnesium hydroxide 30ml (MOM) UD suspension PO PRN (11:18)
[2018-09-26] MEDS ORDERED: zolpidem 5mg tablet PO PRN (16:40)
[2018-09-26 18:00] VITALS: BP 140/77
--- NOTE | 2018-09-26 18:30 | NUR ---
Patient in room LARON 349. I have received report from Isabella NORTON and had the opportunity to ask questions and assume patient care.
[2018-09-26] MEDS: Terazosin 1mg capsule PO SCH (21:00)
[2018-09-26] MEDS: insulin glargine (Lantus) pen - multi-dose SQ SCH (21:42)
[2018-09-27] VITALS: BP 136/76
[2018-09-27] MEDS: HYDROcodone/acetaminophen 5mg/325mg tablet PO PRN ×2 (03:18→17:24)
--- NOTE | 2018-09-27 06:26 | NUR ---
Problems reprioritized. Patient report given, questions answered & plan of care reviewed with Isabella NORTON.
[2018-09-27] MEDS: pantoprazole 40mg Tablet.DR PO SCH (07:30)
[2018-09-27] MEDS: K and/or MAG REPLACEMENT MC SCH (07:36)
[2018-09-27] MEDS: gabapentin 400mg capsule PO SCH ×2 (07:36→20:00)
[2018-09-27] MEDS: duloxetine 30mg CAPSULE.DR PO SCH (07:44)
[2018-09-27] MEDS: docusate sod 100mg capsule PO SCH (07:44)
[2018-09-27] MEDS: cyanocobalamin 500mcg tablet PO SCH (07:45)
[2018-09-27] MEDS: aspirin 81mg tablet.DR PO SCH (07:45)
[2018-09-27 08:00] VITALS: BP 140/78
[2018-09-27 11:00] VITALS: BP 129/67
--- NOTE | 2018-09-27 18:15 | NUR ---
Patient in room LARON 349. I have received report from Isabella NORTON and had the opportunity to ask questions and assume patient care.
[2018-09-27 18:30] VITALS: BP 127/83
--- NOTE | 2018-09-27 19:01 | NUR ---
Problems reprioritized. Patient report given, questions answered & plan of care reviewed with Lacy NORTON.
[2018-09-27] MEDS: Terazosin 1mg capsule PO SCH ×2 (21:00→21:14)
[2018-09-27] MEDS: insulin glargine (Lantus) pen - multi-dose SQ SCH (21:14)
[2018-09-28 00:05] VITALS: BP 121/75
[2018-09-28] MEDS: HYDROcodone/acetaminophen 5mg/325mg tablet PO PRN ×3 (04:56→21:58)
--- NOTE | 2018-09-28 06:15 | NUR ---
Problems reprioritized. Patient report given, questions answered & plan of care reviewed with Isabella NORTON.
[2018-09-28] MEDS: pantoprazole 40mg Tablet.DR PO SCH (07:30)
[2018-09-28 08:00] VITALS: BP 111/68
[2018-09-28] MEDS: K and/or MAG REPLACEMENT MC SCH (08:00)
[2018-09-28] MEDS: gabapentin 400mg capsule PO SCH ×2 (08:00→19:23)
[2018-09-28] MEDS: aspirin 81mg tablet.DR PO SCH (08:26)
[2018-09-28] MEDS: docusate sod 100mg capsule PO SCH (08:26)
[2018-09-28] MEDS: cyanocobalamin 500mcg tablet PO SCH (08:26)
[2018-09-28] MEDS: duloxetine 30mg CAPSULE.DR PO SCH (08:27)
[2018-09-28] MEDS: magnesium hydroxide 30ml (MOM) UD suspension PO PRN (08:28)
[2018-09-28] MEDS: insulin Lispro (HumaLOG) vial - multi-dose SQ SCH ×3 (08:46→19:18)
[2018-09-28] MEDS ORDERED: dronabinol 2.5mg capsule PO PRN (10:35)
[2018-09-28 11:00] VITALS: BP 140/76
[2018-09-28] MEDS: dronabinol 2.5mg capsule PO PRN ×2 (11:33→21:43)
[2018-09-28] MEDS ORDERED: LIDOCAINE 5% OINTMENT 35GM TP PRN (15:55)
--- NOTE | 2018-09-28 18:45 | NUR ---
Patient in room LARON 349. I have received report from Isabella NORTON and had the opportunity to ask questions and assume patient care.
--- NOTE | 2018-09-28 19:18 | NUR ---
Problems reprioritized. Patient report given, questions answered & plan of care reviewed with LEATHA NORTON .
[2018-09-28] MEDS: clotrimazole topical cream 15gm tube TP SCH (19:25)
[2018-09-28 19:30] VITALS: BP 117/78
[2018-09-28] MEDS: Terazosin 1mg capsule PO SCH (21:00)
[2018-09-28] MEDS: insulin glargine (Lantus) pen - multi-dose SQ SCH (21:56)
[2018-09-28 23:30] VITALS: BP 106/54
--- NOTE | 2018-09-29 06:43 | NUR ---
Problems reprioritized. Patient report given, questions answered & plan of care reviewed with Gwendolyn NORTON.
--- NOTE | 2018-09-29 06:45 | NUR ---
Patient in room LARON 349. I have received report from Catrachita NORTON and had the opportunity to ask questions and assume patient care.
[2018-09-29] MEDS: pantoprazole 40mg Tablet.DR PO SCH (07:30)
[2018-09-29 07:52] VITALS: BP 114/70
[2018-09-29] MEDS: K and/or MAG REPLACEMENT MC SCH (07:53)
[2018-09-29] MEDS: duloxetine 30mg CAPSULE.DR PO SCH (07:57)
[2018-09-29] MEDS: docusate sod 100mg capsule PO SCH (07:58)
[2018-09-29] MEDS: cyanocobalamin 500mcg tablet PO SCH (07:58)
[2018-09-29] MEDS: gabapentin 400mg capsule PO SCH ×2 (07:59→19:52)
[2018-09-29] MEDS: HYDROcodone/acetaminophen 5mg/325mg tablet PO PRN ×2 (08:00→16:42)
[2018-09-29] MEDS: clotrimazole topical cream 15gm tube TP SCH ×2 (08:00→19:53)
[2018-09-29] MEDS: aspirin 81mg tablet.DR PO SCH (08:03)
[2018-09-29] MEDS: insulin Lispro (HumaLOG) vial - multi-dose SQ SCH ×3 (09:12→19:48)
[2018-09-29 11:26] VITALS: BP 120/74
--- NOTE | 2018-09-29 18:13 | NUR ---
Problems reprioritized. Patient report given, questions answered & plan of care reviewed with Pat RN.
--- NOTE | 2018-09-29 18:30 | NUR ---
Patient in room LARON 349. I have received report from CIERRA Snow and had the opportunity to ask questions and assume patient care.
[2018-09-29 19:00] VITALS: BP 128/80
[2018-09-29] MEDS: Terazosin 1mg capsule PO SCH (21:00)
[2018-09-29] MEDS: insulin glargine (Lantus) pen - multi-dose SQ SCH (22:14)
[2018-09-30] VITALS: BP 110/71
--- NOTE | 2018-09-30 06:30 | NUR ---
report given to CIERRA Givens
[2018-09-30 07:17] VITALS: BP 122/69
[2018-09-30] MEDS: pantoprazole 40mg Tablet.DR PO SCH (07:59)
[2018-09-30] MEDS: cyanocobalamin 500mcg tablet PO SCH (08:00)
[2018-09-30] MEDS: aspirin 81mg tablet.DR PO SCH (08:00)
[2018-09-30] MEDS: docusate sod 100mg capsule PO SCH (08:00)
[2018-09-30] MEDS: HYDROcodone/acetaminophen 5mg/325mg tablet PO PRN ×2 (08:00→19:51)
[2018-09-30] MEDS: duloxetine 30mg CAPSULE.DR PO SCH (08:00)
[2018-09-30] MEDS: gabapentin 400mg capsule PO SCH ×2 (08:00→19:52)
[2018-09-30] MEDS: K and/or MAG REPLACEMENT MC SCH (08:00)
[2018-09-30] MEDS: insulin Lispro (HumaLOG) vial - multi-dose SQ SCH ×2 (08:55→13:18)
[2018-09-30] MEDS: clotrimazole topical cream 15gm tube TP SCH ×2 (08:56→19:53)
[2018-09-30 11:00] VITALS: BP 109/67
[2018-09-30] MEDS: lactose-reduced food (Ensure Enlive) - 237ml bottle PO SCH ×2 (13:00→18:00)
--- NOTE | 2018-09-30 15:16 | NUR ---
Reassessment: Pt PO down to 25% meals fluctuating; ensure enlive TIDWM added for additional needs; MD notified. At baseline from metabolic encephalopathy per MD but possibly underlying dementia w/ psych consult pending per MD note. Pt not appropriate for DM ed and awaiting placement. Will continue to monitor. Rec: 1. continue heart healthy/carb controlled diet 2. ensure enlive TIDWM 3. wt per rx Addendum: 09/30/18 at [address] Amended: Links added.
--- NOTE | 2018-09-30 17:43 | NUR ---
Patient in room LARON 349. I have received report from PAT RN and had the opportunity to ask questions and assume patient care.
--- NOTE | 2018-09-30 18:01 | NUR ---
GAVE REPORT TO VINI MARTINI
--- NOTE | 2018-09-30 18:30 | NUR ---
Patient in room LARON 349. I have received report from Tosha NORTON and had the opportunity to ask questions and assume patient care. Patient finishing dinner, requesting pain medications, will continue to monitor.
[2018-09-30 19:58] VITALS: BP 116/56
[2018-09-30] MEDS: Terazosin 1mg capsule PO SCH (21:00)
[2018-09-30] MEDS: insulin glargine (Lantus) pen - multi-dose SQ SCH (22:30)
[2018-09-30 23:00] VITALS: BP 95/62
[2018-10-01] MEDS: HYDROcodone/acetaminophen 5mg/325mg tablet PO PRN ×3 (02:19→18:46)
--- NOTE | 2018-10-01 06:25 | NUR ---
Patient in room LARON 349. I have received report from CIERRA Lopes and had the opportunity to ask questions and assume patient care.
--- NOTE | 2018-10-01 06:28 | NUR ---
Problems reprioritized. Patient report given, questions answered & plan of care reviewed with Dorie RN, Resting respirations even, bed alarm placed due to sitter no longer in room. .
[2018-10-01 07:00] VITALS: BP 97/66
[2018-10-01] MEDS: pantoprazole 40mg Tablet.DR PO SCH (07:30)
[2018-10-01] MEDS: aspirin 81mg tablet.DR PO SCH (07:59)
[2018-10-01] MEDS: cyanocobalamin 500mcg tablet PO SCH (07:59)
[2018-10-01] MEDS: duloxetine 30mg CAPSULE.DR PO SCH (08:00)
[2018-10-01] MEDS: gabapentin 400mg capsule PO SCH ×2 (08:00→18:53)
[2018-10-01] MEDS: K and/or MAG REPLACEMENT MC SCH (08:00)
[2018-10-01] MEDS: docusate sod 100mg capsule PO SCH (08:03)
[2018-10-01] MEDS: clotrimazole topical cream 15gm tube TP SCH ×2 (08:05→21:58)
[2018-10-01] MEDS: lactose-reduced food (Ensure Enlive) - 237ml bottle PO SCH ×3 (09:31→17:52)
[2018-10-01 11:00] VITALS: BP 93/57
--- NOTE | 2018-10-01 11:04 | NUR ---
SS contacted [facility] & requested a f/u re disposition of referral, APS SW will rt SS p/c later to consult. SS also contacted [facility] SW- Poonam Long- [phone] vm request rt p/c re her work w/pt's spouse in accessing a bed @ a [place] facility. SS contacted pt's spouse to f/u on her efforts to find placement for pt, per discussion, spouse reports that Jessie had informed her that pt has been accepted @ [facility] and would go there sometime this week, SS informed her that the hospital have not received this info from the [place]. SS engaged spouse in discussion re Assisted Living Facilities, spouse will visit pt this afternoon, SS will meet w/her & provide contact info for assisted living coordinators.
[2018-10-01] MEDS: insulin Lispro (HumaLOG) vial - multi-dose SQ SCH ×2 (13:41→18:42)
--- NOTE | 2018-10-01 14:12 | NUR ---
SS had t/c with pt's spouse and engaged her in d/c planning activities. Per phone discussion, pt's spouse still believes that a [facility] facility will accept pt and thus refuses to discuss a dcp with SS. SS to contact [facility]PS to f/u on dispo for referral.
--- NOTE | 2018-10-01 15:13 | NUR ---
SS received rt p/c from KEAGAN CAVAZOS, per consultation, KEAGAN CAVAZOS indicated that pt was alert & very oriented and has a right to return to his home at this time as he no longer requires hospitalization. SS contacted pt's spouse to engage her in discussion to facilitate a dcp for pt. Spouse was argumentative and hung up the phone when SS asked her to provide a time between this afternoon & tomorrow afternoon which she would be able to pick him up and take him home. After hanging up w/ELIZ, spouse contacted Harvey, but also hung up w/her when Patti attempts to inform spouse that the [place] facility in [place] has no beds for pt at this time and that pt needs to go home. SS to continue to monitor situation to facilitate & support dcp.
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
--- NOTE | 2018-10-01 18:23 | NUR ---
Problems reprioritized. Patient report given, questions answered & plan of care reviewed with CIERRA Lopes.
--- NOTE | 2018-10-01 18:30 | NUR ---
Patient in room LARON 349. I have received report from Dorie NORTON and had the opportunity to ask questions and assume patient care. Patient resting, working on dinner, states will use call light to notify when meal completed. Will continue to monitor.
[2018-10-01 19:05] VITALS: BP 102/59
[2018-10-01] MEDS: Terazosin 1mg capsule PO SCH (21:00)
[2018-10-01] MEDS: insulin glargine (Lantus) pen - multi-dose SQ SCH (21:57)
[2018-10-02] VITALS: BP 93/51
--- NOTE | 2018-10-02 06:40 | NUR ---
Problems reprioritized. Patient report given, questions answered & plan of care reviewed with Mariangel NORTON. Patient resting on right side.
--- NOTE | 2018-10-02 06:44 | NUR ---
Patient in room LARON 349. I have received report from CIERRA Lopes and had the opportunity to ask questions and assume patient care.
[2018-10-02 07:00] VITALS: BP 90/65
[2018-10-02] MEDS: pantoprazole 40mg Tablet.DR PO SCH (07:30)
[2018-10-02] MEDS: gabapentin 400mg capsule PO SCH (08:00)
[2018-10-02 08:22] VITALS: BP 112/63
[2018-10-02] MEDS: HYDROcodone/acetaminophen 5mg/325mg tablet PO PRN ×2 (08:28→17:14)
[2018-10-02] MEDS: cyanocobalamin 500mcg tablet PO SCH (08:28)
[2018-10-02] MEDS: clotrimazole topical cream 15gm tube TP SCH (08:28)
[2018-10-02] MEDS: duloxetine 30mg CAPSULE.DR PO SCH (08:29)
[2018-10-02] MEDS: docusate sod 100mg capsule PO SCH (08:29)
[2018-10-02] MEDS: aspirin 81mg tablet.DR PO SCH (08:29)
[2018-10-02] MEDS: lactose-reduced food (Ensure Enlive) - 237ml bottle PO SCH ×2 (08:29→13:11)
[2018-10-02] MEDS: insulin Lispro (HumaLOG) vial - multi-dose SQ SCH ×2 (08:33→13:25)
--- NOTE | 2018-10-02 09:37 | NUR ---
SS received vm from pt's spouse stating that she will meet /[facility] GUSTAVO Long this morning re placement for pt, if the VA is unable to find a placement for pt, spouse will take him home this afternoon. CM & attending RN informed.
[2018-10-02 11:00] VITALS: BP 114/59
--- NOTE | 2018-10-02 11:03 | NUR ---
SS had t/c with spouse and she informed SS that she will be @ the hospital to pickling operator pt around 3:00n PM as [facility] SW had informed her that [facility] not [facility] at any [facility] facility and therefore, will need to go home. Spouse was able sign pt up for MH services with the [place] and will take pt to the [facility] clinic following d/c to establish a PMD for him. Attending physician, RN & CM informed. Pt will need all his meds sent w/him. Plan: SS to contact [facility] pharmacy to see if pt can access his meds via a discounted plan.
[2018-10-02] MEDS ORDERED: LIDO35.4 TP (11:21)
[2018-10-02] MEDS ORDERED: CYAN-19 PO (11:36)
[2018-10-02] MEDS ORDERED: GABA-534 PO (11:36)
[2018-10-02] MEDS ORDERED: METH500T6 PO (11:36)
[2018-10-02] MEDS ORDERED: INSU100V37 SQ (11:36)
[2018-10-02] MEDS ORDERED: DOCU100C41 PO (11:36)
[2018-10-02] MEDS ORDERED: OMEP40CA37 PO (11:36)
[2018-10-02] MEDS ORDERED: ASPI81TA52 PO (11:36)
[2018-10-02] MEDS ORDERED: TERA2CAP4 PO (11:36)
[2018-10-02] MEDS ORDERED: DULO-31 PO (11:36)
--- NOTE | 2018-10-02 15:21 | NUR ---
SS met w/pt's spouse, reviewed discharge instructions associated with accessing [facility] services, health insurance, discount prescription meds. Spouse requested for a wheelchair, and was able to agree to renting one from [employer] (where she had rented one prior to hospitalization). SS educated spouse on how to access additional medical equipment via consultation w[facility] so that pt would have to keep renting. SS consulted with attending RN to coordinate caregiver education associated w/insulin injection for pt-per consultation, RN will provide instruction. Spouse also requested for sleep meds for pt, SS re-directed her to consult w/pt's PMD and outpatient psychiatrist. Pt to d/c home w/spouse once she received education on insulin injection. Written SS d/c instructions included in pt's d/c packet.
--- NOTE | 2018-10-02 18:00 | NUR ---
Patient in room [facility]. I have received report from Mariangel NORTON and had the opportunity to ask questions and assume patient care.
--- NOTE | 2018-10-02 18:10 | NUR ---
Patient escorted out with , no IV present, belongings with patient and is alert and stable for discharge. Paperwork signed and provided. Patient and state understanding that the patient needs to go [facility]19 to discuss placement and VA authorization.
--- NOTE | 2018-10-03 08:27 | NUR ---
Pt is d/c'd home with spouse, SS referral closed.
== END 2018-10-02 18:10 | disposition home health service (06) | DRG 682 ==
LOC: ER 10:42 → ED HOLD 14:20 → PCU 3S 09-17 00:23 → SUR 3N 09-24 15:06
PROVIDERS: ADMIT Internal Medicine; ATTEND Hospitalist
DX: N17.9 Acute kidney failure, unspecified (principal); G93.41 Metabolic encephalopathy; E86.0 Dehydration; E87.6 Hypokalemia; F03.90 Unspecified dementia, unspecified severity, without behavioral disturbance, psychotic disturbance, mood disturbance, and anxiety; F12.90 Cannabis use, unspecified, uncomplicated; E11.65 Type 2 diabetes mellitus with hyperglycemia; G89.29 Other chronic pain; K21.9 Gastro-esophageal reflux disease without esophagitis; M54.30 Sciatica, unspecified side; N40.0 Benign prostatic hyperplasia without lower urinary tract symptoms; F32.9 Major depressive disorder, single episode, unspecified; F41.9 Anxiety disorder, unspecified; M25.552 Pain in left hip; R21 Rash and other nonspecific skin eruption; R44.1 Visual hallucinations; Z79.899 Other long term (current) drug therapy; Z79.4 Long term (current) use of insulin; Z79.82 Long term (current) use of aspirin; Z56.0 Unemployment, unspecified; Z75.1 Person awaiting admission to adequate facility elsewhere
CPT/HCPCS: 36415; 70450; 70544; 70551; 71045; 80048; 80053; 80305; 80320; 81001; 82948; 83036; 83735; 84132; 84145; 84443; 84484; 85025; 86592; 87070; 93005; 96360; 96361; 96372; 97116; 97161; 97530; 99285; G0378; J1815; J3475; J7030; Q0167